=== PATIENT | male | born 1970 | race Caucasian/White ===

== ENCOUNTER 2020-12-18 14:35 | Emergency (ER) | payer OTHER, SELFPAY ==
[2020-12-18 15:10] LABS: Absolute Lymphocytes (CBC) 2.3 K/uL (0.7-4.9); Basophils % 0.6 % (0-1.3); Hematocrit 44.5 % (39.6-49.0); Lymphocytes % 37.7 % (15.3-44.8); MPV 8.4 fL (7.6-11.3); RBC Red Blood Cell Count 4.98 M/uL (4.33-5.43)
--- NOTE | 2020-12-18 15:13 | RAD REPORT ---
EXAM DESCRIPTION: CT - Head C Spine Cap Ashwini Lui - 12/18/2020 2:52 pm CLINICAL HISTORY: Trauma, head and neck injury. Chest, abdomen and pelvis pain. FALL >14 ft COMPARISON: No comparisons TECHNIQUE: CT head without contrast. CT cervical spine without contrast with coronal and sagittal reformatted images. CT chest, abdomen and pelvis with IV contrast (approximately 100 mL nonionic IV contrast) with simms l and sagittal reformatted images of the spine. All CT scans are performed using dose optimization technique as appropriate and may include automated exposure control or mA/KV adjustment according to patient size. FINDINGS: CT HEAD WITHOUT CONTRAST: No intracranial hemorrhage, hydrocephalus or extra-axial fluid collection. No areas of brain edema o r midline shift. The paranasal sinuses and mastoids are clear. The calvarium is intact. CT CERVICAL SPINE WITHOUT CONTRAST: No fracture or subluxation. The prevertebral soft tissues are normal in thickness. CT CHEST, ABDOMEN, PELVIS WITH CONTRAST: The lungs are clear.No pneumothorax or pericardial/pleural fluid. No evidence of intra-abdominal visceral injury, free fluid or free air. No concerning pelvic findings. Normal appendix. No fractures. IMPRESSION: Negative for acute traumatic findings.
[2020-12-18 15:28] LABS: Potassium 3.7 mmol/L (3.5-5.1)
--- NOTE | 2020-12-18 15:48 | ER ---
Nurse's Notes [facility] Name: Tyler Arvizu Age: 50 yrs Sex: Male : 1970 Arrival Date: 12/18/2020 Time: 14:36 Bed 2 Private MD: Diagnosis: Acute pain due to trauma;Concussion with loss of consciousness of 30 minutes or less Presentation: 12/18 14:43 Chief complaint: Patient states: fall from ladder. pt unsure what he hit. pt c/o cp and tr6 pain with breathing. Coronavirus screen: At this time, unable to obtain information related to travel outside the [place] Ebola Screen: No symptoms or risks identified at this time. Risk Assessment: Do you want to hurt yourself or someone else? Patient reports no desire to harm self or others. Onset of symptoms is unknown. 14:43 Acuity: LAILA 2 tr6 14:43 Method Of Arrival: Wheelchair tr6 14:48 Initial Sepsis Screen: Does the patient meet any 2 criteria? No. Patient's initial tr6 sepsis screen is negative. Does the patient have a suspected source of infection? No. Patient's initial sepsis screen is negative. 14:48 Mechanism of Injury: Fall from ladder. Trauma event details: Injury occurred: December 6 2020. 15:28 Care prior to arrival: None. tr6 Triage Assessment: 14:47 General: Appears uncomfortable, Behavior is calm, cooperative, appropriate for age. tr6 Pain: Complains of pain in chest, back. EENT: No deficits noted. Neuro: Level of Consciousness is awake, alert, obeys commands, Oriented to person, place, time, situation, Appropriate for age Executive Meeting Manager are equal bilaterally Speech is normal, Facial symmetry appears normal. GI: No deficits noted. : No deficits noted. Trauma Activation: Physician: ED Physician; Name: MD Qasim Mercer; Notified At: ; Arrived At: Physician: General Surgeon; Name: ; Notified At: ; Arrived At: Physician: Radiology; Name: ; Notified At: ; Arrived At: Physician: Respiratory; Name: ; Notified At: ; Arrived At: Physician: Lab; Name: ; Notified At: ; Arrived At: Historical: - Allergies: 14:47 No Known Allergies; tr6 - Home Meds: 14:47 None [Active]; tr6 - PMHx: 14:47 None; tr6 - Immunization history:: Adult Immunizations unknown. - Immunization history: Last tetanus immunization: - up to date. - Social history:: Smoking status: unknown. Screenin:41 Abuse screen: Denies threats or abuse. Denies injuries from another. Nutritional tr6 screening: No deficits noted. Tuberculosis screening: No symptoms or risk factors identified. Fall Risk Fall in past 12 months (25 points). Primary Survey: 14:42 NO uncontrolled hemorrhage observed. A: The patient is alert. Airway: patent, tr6 Breathing/Chest: Respiratory pattern: regular, Respiratory effort: spontaneous, unlabored. Circulation: Pulses: palpable right radial artery, left radial artery and right carotid pulse. Disability Alert. Exposure/Environment: All clothing and personal items were removed. Forensic evidence collection is not deemed to be indicated at this time. Items placed in patient belonging bag. 15:27 Reassessment Breathing/Chest Respiratory pattern Regular Respiratory effort Spontaneous tr6 Unlabored. Secondary Survey: 15:27 HEENT: No deficits noted. Gastrointestinal: No deficits noted. : No deficits noted. tr6 Musculoskeletal: Reports pain in back. Assessment: 16:13 Reassessment: pt states pain has improved while lying supine. pt wheeled out by RN in tr6 wheelchair and placed in car with . pt discharged safely. Vital Signs: 15:07 BP 179 / 118; Pulse 75; Resp 20; Temp 97.9; Pulse Ox 96% on R/A; tr6 16:11 BP 158 / 98; Pulse 87; Resp 18; Pulse Ox 98% on R/A; tr6 [place] Coma Score: 15:07 Eye Response: spontaneous(4). Verbal Response: oriented(5). Motor Response: obeys tr6 commands(6). Total: 15. Trauma Score (Adult): 15:07 Eye Response: spontaneous(1); Verbal Response: oriented(1); Motor Response: obeys tr6 commands(2); Systolic BP: > 89 mm Hg(4); Respiratory Rate: 10 to 29 per min(4); [place] Score: 15; Trauma Score: 12 15:32 Eye Response: spontaneous(1); Verbal Response: oriented(1); Motor Response: obeys jr8 commands(2); Systolic BP: > 89 mm Hg(4); Respiratory Rate: 10 to 29 per min(4); [place] Score: 15; Trauma Score: 12 ED Course: 14:36 Patient arrived in ED. am2 14:40 Douglas Witt PA is PHCP. jr8 14:40 Qasim Mercer is Attending Physician. jr8 14:40 [place], POLI is Primary Nurse. tr6 14:40 Inserted saline lock: 18 gauge in right antecubital area, using aseptic technique. tr6 Blood collected. 14:40 Inserted saline lock: 20 gauge in left antecubital area, using aseptic technique. tr6 14:41 No provider procedures requiring assistance completed. pt in CT. Patient maintains SpO2 tr6 saturation greater than 95% on room air. 14:41 Patient has correct armband on for positive identification. Fall risk band placed. tr6 Placed in gown. Bed in low position. Call light in reach. Side rails up X2. property assessment monitor on. Pulse ox on. NIBP on. Door closed. Noise minimized. Visitors limited. Lights dimmed. Moved to private room. Warm blanket given. Diet: Patient is NPO. 14:44 Triage completed. tr6 14:52 CT Traumagram (Head C Spine CAP W Con) In Process Unspecified. EDMS 15:46 Chandan Ferrara MD is Referral Physician. jr8 16:12 IV discontinued, intact, bleeding controlled, No redness/swelling at site. Pressure tr6 dressing applied. 16:12 Thermoregulation: warm blanket given to patient. tr6 16:12 Arm band placed on right wrist. Patient placed in an exam room. tr6 Administered Medications: 16:11 Drug: fentaNYL (PF) 50 mcg Route: IVP; Site: right antecubital; tr6 16:11 Drug: Zofran (Ondansetron) 4 mg Route: IVP; Site: right antecubital; tr6 Outcome: 15:46 Discharge ordered by . jr8 16:11 Discharged to home via wheelchair, with family. tr6 16:11 Condition: improved 16:11 Discharge instructions given to patient, family, Instructed on discharge instructions, follow up and referral plans. no drinking with medication, medication usage, safety practices, Demonstrated understanding of instructions, follow-up care, medications, Prescriptions given X 3. 16:12 Patient's length of stay was not longer than 2 hours. tr6 16:13 Patient left the ED. tr6 Signatures: Dispatcher [employer] EDMS Douglas Witt PA PA jr8 Katie Rueda Tiffany, RN RN tr6 Corrections: (The following items were deleted from the chart) 15:37 15:07 BP 179 / 118; Pulse 75bpm; Resp 20bpm; Pulse Ox 96% RA; tr6 tr6
--- NOTE | 2020-12-18 15:48 | EDPHYS ---
Physician Documentation [facility] Name: Tyler Arvizu Age: 50 yrs Sex: Male : 1970 Arrival Date: 12/18/2020 Time: 14:36 Bed 2 Private MD: ED Physician Qasim Mercer HPI: 12/18 15:32 This 50 yrs old Male presents to ER via Wheelchair with complaints of Fall jr8 Injury, Chest Pain, tailbone pain. 15:32 Details of fall: The patient fell from a height, from a ladder, approximately 14 feet. jr8 Onset: The symptoms/episode began/occurred acutely, today. Associated injuries: The patient sustained injury to the head, injury to the low back, injury to the chest. Severity of symptoms: At their worst the symptoms were moderate, in the emergency department the symptoms are unchanged. The patient has not experienced similar symptoms in the past. The patient has not recently seen a physician. This is a 50-year-old gentleman that arrived to the emergency room by personal vehicle after sustaining a fall from a 14 foot ladder. Stated that he slipped and felt the instability of the ladder tried to grab a hold of a loose board but fell backwards. Positive loss of consciousness. Stated that his lower back and buttock region is hurting along with having mild shortness of breath.. Historical: - Allergies: 14:47 No Known Allergies; tr6 - Home Meds: 14:47 None [Active]; tr6 - PMHx: 14:47 None; tr6 - Immunization history:: Adult Immunizations unknown. - Immunization history: Last tetanus immunization: - up to date. - Social history:: Smoking status: unknown. ROS: 15:32 Eyes: Negative for injury, pain, redness, and discharge, ENT: Negative for injury, jr8 pain, and discharge, Neck: Negative for injury, pain, and swelling, Cardiovascular: Negative for chest pain, palpitations, and edema, Abdomen/GI: Negative for abdominal pain, nausea, vomiting, diarrhea, and constipation, MS/Extremity: Negative for injury and deformity, Skin: Negative for injury, rash, and discoloration. 15:32 Respiratory: Positive for shortness of breath. 15:32 Back: Positive for pain at rest, pain with movement. 15:32 Neuro: Positive for loss of consciousness, visual changes. Exam: 15:32 Head/Face: Normocephalic, atraumatic. Eyes: Pupils equal round and reactive to light, jr8 extra-ocular motions intact. Lids and lashes normal. Conjunctiva and sclera are non-icteric and not injected. Cornea within normal limits. Periorbital areas with no swelling, redness, or edema. ENT: Nares patent. No nasal discharge, no septal abnormalities noted. Tympanic membranes are normal and external auditory canals are clear. Oropharynx with no redness, swelling, or masses, exudates, or evidence of obstruction, uvula midline. Mucous membranes moist. Neck: Trachea midline, no thyromegaly or masses palpated, and no cervical lymphadenopathy. Supple, full range of motion without nuchal rigidity, or vertebral point tenderness. No Meningismus. Cardiovascular: Regular rate and rhythm with a normal S1 and S2. No gallops, murmurs, or rubs. Normal PMI, no JVD. No pulse deficits. Respiratory: Lungs have equal breath sounds bilaterally, clear to auscultation and percussion. No rales, rhonchi or wheezes noted. No increased work of breathing, no retractions or nasal flaring. Abdomen/GI: Soft, non-tender, with normal bowel sounds. No distension or tympany. No guarding or rebound. No evidence of tenderness throughout. Skin: Warm, dry with normal turgor. Normal color with no rashes, no lesions, and no evidence of cellulitis. MS/ Extremity: Pulses equal, no cyanosis. Neurovascular intact. Full, normal range of motion. Neuro: Awake and alert, GCS 15, oriented to person, place, time, and situation. Cranial nerves II-XII grossly intact. Motor strength 5/5 in all extremities. Sensory grossly intact. 15:32 Chest/axilla: Inspection: normal, Palpation: tenderness, that is mild, of the right lateral anterior chest and left lateral anterior chest. 15:32 Back: pain, that is mild, of the left scapular area, right scapular area, left subscapular area, right subscapular area, sacrum, left low back and right low back, ROM is painful, normal spinal alignment noted, vertebral tenderness, is not appreciated. Vital Signs: 15:07 BP 179 / 118; Pulse 75; Resp 20; Temp 97.9; Pulse Ox 96% on R/A; tr6 16:11 BP 158 / 98; Pulse 87; Resp 18; Pulse Ox 98% on R/A; tr6 [place] Coma Score: 15:07 Eye Response: spontaneous(4). Verbal Response: oriented(5). Motor Response: obeys tr6 commands(6). Total: 15. Trauma Score (Adult): 15:07 Eye Response: spontaneous(1); Verbal Response: oriented(1); Motor Response: obeys tr6 commands(2); Systolic BP: > 89 mm Hg(4); Respiratory Rate: 10 to 29 per min(4); [place] Score: 15; Trauma Score: 12 15:32 Eye Response: spontaneous(1); Verbal Response: oriented(1); Motor Response: obeys jr8 commands(2); Systolic BP: > 89 mm Hg(4); Respiratory Rate: 10 to 29 per min(4); [place] Score: 15; Trauma Score: 12 MDM: 14:[address] [facility] 15:32 Data reviewed: vital signs, nurses notes, lab test result(s), radiologic studies, CT jr8 scan. Data interpreted: Pulse oximetry: on room air is 96 %. Interpretation: normal. Counseling: I had a detailed discussion with the patient and/or guardian regarding: the historical points, exam findings, and any diagnostic results supporting the discharge/admit diagnosis, lab results, radiology results, the need for outpatient follow up, a family practitioner, to return to the emergency department if symptoms worsen or persist or if there are any questions or concerns that arise at home. 15:45 ED course: Without acute traumatic findings on CT trauma gram. Hemodynamically stable jr8 at this time. Pain improving. Patient is alert and oriented to person place time and event and recalls event at this point. Patient does have signs of concussion with postconcussive syndrome. Patient will need to be closely followed by family medicine and will refer to neurology as well. Knows to come back if acutely worse.. 12/18 14:41 Order name: Basic Metabolic Panel; Complete Time: 15:32 jr8 12/18 14:41 Order name: CBC with Diff; Complete Time: 15:17 jr8 12/18 14:41 Order name: Type And Screen 8 12/18 14:41 Order name: CT Traumagram (Head C Spine CAP W Con); Complete Time: 15:17 jr8 12/18 14:41 Order name: Labs collected and sent; Complete Time: 14:54 jr8 Administered Medications: 16:11 Drug: fentaNYL (PF) 50 mcg Route: IVP; Site: right antecubital; tr6 16:11 Drug: Zofran (Ondansetron) 4 mg Route: IVP; Site: right antecubital; tr6 Disposition: 18:57 Co-signature as Attending Physician, Qasim Mercer I agree with the assessment and plan sp3 of care. Disposition Summary: 12/18/20 15:46 Discharge Ordered Location: Home jr8 Problem: new jr8 Symptoms: have improved jr8 Condition: Stable jr8 Diagnosis - Acute pain due to trauma jr8 - Concussion with loss of consciousness of 30 minutes or less jr8 Followup: jr8 - With: Chandan Ferrara MD - When: 5 - 6 days - Reason: Recheck today's complaints, Continuance of care, Re-evaluation by your physician Discharge Instructions: - Discharge Summary Sheet jr8 - Head Injury, Adult jr8 - Muscle Pain, Adult jr8 Forms: - Medication Reconciliation Form jr8 - Thank You Letter jr8 - Antibiotic Education jr8 - Prescription Opioid Use jr8 Prescriptions: - Ibuprofen 800 mg Oral Tablet - take 1 tablet by ORAL route every 12 hours As needed take with food; 20 tablet; jr8 Refills: 0, Product Selection Permitted - Skelaxin 800 mg Oral Tablet - take 1 tablet by ORAL route every 8 hours As needed; 30 tablet; Refills: 0, jr8 Product Selection Permitted - Tramadol 50 mg Oral Tablet - take 1 tablet by ORAL route every 8 hours as needed; 12 tablet; Refills: 0, jr8 Product Selection Permitted Signatures: Dispatcher [employer] Douglas Gary PA PA jr8 [place] RN RN tr6 Qasim Mercer sp3
[2020-12-18] MEDS ORDERED: ONDANSETRON 4 MG/2 ML VIAL ONE (16:17)
[2020-12-18] MEDS ORDERED: FENTANYL CITR 100 MCG/2 ML ONE (16:17)
[2020-12-18 16:30] VITALS: TEMP 97.9
[2020-12-18 16:32] VITALS: BP 158/98; O2SAT 98
--- NOTE | 2020-12-19 16:28 | EKG ---
Test Date: 2020-12-18 Test Time: 15:03:20 Sports Marketing Specialist: LEROY MEASUREMENT RESULTS: Intervals: Rate: 75 [place]: 172 QRSD: 72 QT: 364 QTc: 406 [place]: P: 42 [place]: 172 QRS: -3 T: 11 INTERPRETIVE STATEMENTS: Normal sinus rhythm Normal ECG No previous ECG available for comparison Electronically Signed On 12-19-20 16:24:13 CDT by Wilfred Quiñonez
== END 2020-12-18 16:13 | disposition home or self-care (01) ==
LOC: ER 14:35
DX: S06.0X1A Concussion with loss of consciousness of 30 minutes or less, initial encounter (principal); W11.XXXA Fall on and from ladder, initial encounter
CPT/HCPCS: 36415; 70450; 71260; 72125; 74177; 80048; 82565; 85025; 86850; 86900; 86901; 93005; 96374; 96375; 99285; J2405; J3010; Q9967